=== PATIENT | male | born 1990 | race Caucasian/White ===

== ENCOUNTER 2019-01-24 07:49 | Emergency (ER) | payer OTHER ==
[2019-01-24 07:58] VITALS: BP 129/84; PULSE 80; RESP 18; TEMP 97.7
[2019-01-24] MEDS ORDERED: TOBRAMYCIN 0.3% OPHTH DROPS 5 ML BTL RIGHT EYE STA (08:18)
--- NOTE | 2019-01-24 08:23 | ED ---
Eye Problem HPI - General Chief complaint: Eye Problems Stated complaint: FB in eye-[facility] Time Seen by Provider: 01/24/19 08:08 Source: patient, RN notes reviewed Mode of arrival: ambulatory Limitations: no limitations - History of Present Illness Initial comments: This a 28-year-old male presents emergency Department chief complaint foreign body to the right eye. Patient states that he is going off some parts at work and states a piece of pain 20 to his right eye. Patient states he had severe irritation last night was able to flush out improved symptoms. Patient states that he still feels slight irritation but not as bad as last night. Patient denies any blurred vision, double vision. His tetanus is up-to-date. - Related Data Allergies Allergy/AdvReac Type Severity Reaction Status Date / Time No Known Allergies Allergy Verified 01/24/19 07:58 Review of Systems ROS Statement: Those systems with pertinent positive or pertinent negative responses have been documented in the HPI. ROS Other: All systems not noted in ROS Statement are negative. Past Medical History Past Medical History: No Reported History History of Any Multi-Drug Resistant Organisms: None Reported Additional Past Surgical History / Comment(s): knee surgery, acl replacement Past Psychological History: No Psychological Hx Reported Smoking Status: Never smoker Past Alcohol Use History: Occasional Past Drug Use History: None Reported General Exam Limitations: no limitations General appearance: alert, in no apparent distress Head exam: Present: atraumatic, normocephalic, normal inspection Eye exam: Present: normal appearance, PERRL, EOMI, conjunctival injection (Mild right). Absent: scleral icterus, periorbital swelling Pupils: Present: other (Fluorescein dye and Wood's lamp were used to evaluate the right eye which shows uptake in the sclera) ENT exam: Present: normal exam, mucous membranes moist Neck exam: Present: normal inspection. Absent: tenderness, meningismus, lymphadenopathy Respiratory exam: Present: normal lung sounds bilaterally. Absent: respiratory distress, wheezes, rales, rhonchi, stridor Cardiovascular Exam: Present: regular rate, normal rhythm, normal heart sounds. Absent: systolic murmur, diastolic murmur, rubs, gallop, clicks Course Vital Signs 01/24/19 07:55 Temperature 97.7 F Pulse Rate 80 Respiratory 18 Rate Blood Pressure 129/84 O2 Sat by Pulse 100 Oximetry Medical Decision Making - Medical Decision Making 28-year-old male presented for right eye foreign body. There is no foreign body noted there is a small abrasion to the sclera. Patient we discharged with Tobrex eyedrops. Patient will follow-up for ophthalmology return for any worsening symptoms. Disposition Clinical Impression: Abrasion of sclera of right eye Disposition: HOME SELF-CARE Condition: Stable Instructions (If sedation given, give patient instructions): Eye Foreign Body (ED) Additional Instructions: Please return to the Emergency Department if symptoms worsen or any other concerns. Use Tobrex eyedrops 1 drop to right eye every 4 hours for 7 days. Is patient prescribed a controlled substance at d/c from ED?: No Referrals: None,Stated [Primary Care Provider] - 1-2 days Ck Vega MD [STAFF PHYSICIAN] - 1-2 days Time of Disposition: 08:22
== END 2019-01-24 08:36 | disposition home or self-care (01) ==
LOC: EC 07:49
DX: S05.01XA Injury of conjunctiva and corneal abrasion without foreign body, right eye, initial encounter (principal); Z98.890 Other specified postprocedural states; X58.XXXA Exposure to other specified factors, initial encounter; Y92.69 Other specified industrial and construction area as the place of occurrence of the external cause; Y99.0 Civilian activity done for income or pay
CPT/HCPCS: 99283

== ENCOUNTER 2020-12-25 18:57 | Emergency (ER) | payer OTHER ==
[2020-12-25 19:12] VITALS: RESP 20; TEMP 98
[2020-12-25] MEDS ORDERED: IBUPROFEN 600 MG TAB PO STA (20:19)
[2020-12-25] MEDS ORDERED: HYDROcodone/APAP 5-325MG 1 EACH TAB PO STA (20:19)
--- NOTE | 2020-12-25 20:40 | XR ---
PROCEDURE: XR knee complete RT - 3V DATE AND TIME: 12/25/2020 8:27 PM CLINICAL INDICATION: PHH; pain TECHNIQUE: Department protocol COMPARISON: None FINDINGS: There is no fracture or malalignment. The soft tissues are unremarkable. IMPRESSION: NO ACUTE PROCESS.
[2020-12-25] MEDS ORDERED: ACET/COD 300 MG/30 MG STARTER PACK 6 TAB BTL PO STA (20:51)
--- NOTE | 2020-12-25 20:52 | ED ---
General Adult HPI - General Chief complaint: Extremity Injury, Lower Stated complaint: Knee injury Time Seen by Provider: 12/25/20 19:43 Source: patient, RN notes reviewed Mode of arrival: ambulatory Limitations: no limitations - History of Present Illness Initial comments: 30-year-old male presents to the emergency room for a chief complaint of right k nee pain. Patient was trying to step over a trailer when his left leg slipped and his right leg bent in a strange way on the edge of the trailer. Patient states it is painful to bend. It is painful to walk on. Patient reports he had a surgery on this knee 11 years ago. Denies any other injuries. Did not hit his head.Patient has no other complaints at this time including shortness of breath, chest pain, abdominal pain, nausea or vomiting, headache, or visual changes. - Related Data Allergies Allergy/AdvReac Type Severity Reaction Status Date / Time No Known Allergies Allergy Verified 12/25/20 19:12 Review of Systems ROS Statement: Those systems with pertinent positive or pertinent negative responses have been documented in the HPI. ROS Other: All systems not noted in ROS Statement are negative. Past Medical History Past Medical History: No Reported History History of Any Multi-Drug Resistant Organisms: None Reported Past Surgical History: Orthopedic Surgery Additional Past Surgical History / Comment(s): knee surgery, acl replacement Past Psychological History: No Psychological Hx Reported Smoking Status: Current every day smoker Past Alcohol Use History: Occasional Past Drug Use History: Marijuana General Exam Limitations: no limitations General appearance: alert, in no apparent distress Head exam: Present: atraumatic, normocephalic, normal inspection Eye exam: Present: normal appearance, PERRL, EOMI. Absent: scleral icterus, conjunctival injection, periorbital swelling ENT exam: Present: normal exam Neck exam: Present: normal inspection, full ROM. Absent: tenderness, meningismus, lymphadenopathy Respiratory exam: Present: normal lung sounds bilaterally. Absent: respiratory distress, wheezes, rales, rhonchi, stridor Cardiovascular Exam: Present: regular rate, normal rhythm, normal heart sounds. Absent: systolic murmur, diastolic murmur, rubs, gallop, clicks Extremities exam: Present: normal capillary refill (Capillary refill less than 2 seconds, DP pulse 2+ in the right lower extremity.), other (Sensation is intact right lower extremity.). Absent: full ROM (45 degrees of flexion before limitation secondary to pain, extension to just less than neutral position.), pedal edema, joint swelling (No significant edema or ecchymosis of the right knee.), calf tenderness Course Vital Signs 12/25/20 19:09 Temperature 98 F Pulse Rate 68 Respiratory 20 Rate Blood Pressure 127/66 O2 Sat by Pulse 96 Oximetry Medical Decision Making - Medical Decision Making Vitals are stable. HPI and physical exam as documented. Range of motion limited secondary to pain. No significant edema. X-ray of the right knee shows no acute process. Patient is unable to fully extend knee. Therefore knee immobilizer was not placed. Patient was wrapped with an Aaron wrap. He was given a prescription for crutches. He will need to follow-up with his orthopedic surgeon who is Dr. Carlisle. He will return here for any worsening symptoms in the meantime. Disposition Clinical Impression: Knee pain, right Disposition: HOME SELF-CARE Instructions (If sedation given, give patient instructions): Knee Pain (ED) Additional Instructions: Please take Motrin and Tylenol for pain. If pain is severe take Tylenol [address] operate machinery while taking this. Use Aaron wrap as needed. Use crutches until you see orthopedics. Follow-up with your orthopedic doctor by calling tomorrow for earliest appointment. You will likely need an MRI. If you have any worsening symptoms return to the emergency room. Is patient prescribed a controlled substance at d/c from ED?: No Referrals: Chato Carlisle MD [STAFF PHYSICIAN] - 1-2 days Time of Disposition: 20:46
[2020-12-25 21:59] VITALS: BP 134/78; PULSE 72
== END 2020-12-25 21:59 | disposition home or self-care (01) ==
LOC: EC 18:57
DX: M25.561 Pain in right knee (principal); F17.200 Nicotine dependence, unspecified, uncomplicated; F12.90 Cannabis use, unspecified, uncomplicated
CPT/HCPCS: 99283

== ENCOUNTER 2024-04-12 07:06 | Emergency (ER) | payer BC ==
[2024-04-12 07:16] VITALS: RESP 18
--- NOTE | 2024-04-12 07:39 | ED ---
Upper Extremity HPI - General Chief Complaint: Extremity Injury, Upper Stated Complaint: Right hand injury Time Seen by Provider: 04/12/24 07:17 Source: patient, RN notes reviewed Mode of arrival: ambulatory Limitations: no limitations - History of Present Illness Initial Comments: 33-year-old male presents emergency department complaint of right hand injury. Patient states that on Tuesday states he went to hit something with his right hand states he uses hand as a "hammer". Patient states she has had pain in his palmar aspect ever since. He is right-hand dominant. No paresthesias no other complaints. - Related Data Allergies Allergy/AdvReac Type Severity Reaction Status Date / Time No Known Allergies Allergy Verified 04/12/24 07:15 Review of Systems ROS Statement: Those systems with pertinent positive or pertinent negative responses have been documented in the HPI. ROS Other: All systems not noted in ROS Statement are negative. Past Medical History Past Medical History: No Reported History History of Any Multi-Drug Resistant Organisms: None Reported Past Surgical History: Orthopedic Surgery Additional Past Surgical History / Comment(s): knee surgery, acl replacement Past Psychological History: No Psychological Hx Reported Smoking Status: Current every day smoker Past Alcohol Use History: Occasional Past Drug Use History: Marijuana General Exam Limitations: no limitations General appearance: alert, in no apparent distress Head exam: Present: atraumatic, normocephalic, normal inspection Respiratory exam: Present: normal lung sounds bilaterally. Absent: respiratory distress, wheezes, rales, rhonchi, stridor Cardiovascular Exam: Present: regular rate, normal rhythm, normal heart sounds. Absent: systolic murmur, diastolic murmur, rubs, gallop, clicks Extremities exam: Present: other (Right hand there is mild tenderness in the hyperthenar region, no ecchymosis or significant swelling neurovascular intact) Course Vital Signs 04/12/24 04/12/24 07:13 08:50 Temperature 97.9 F 98 F Pulse Rate 74 76 Respiratory 18 18 Rate Blood Pressure 135/84 130/79 O2 Sat by Pulse 97 99 Oximetry Medical Decision Making - Medical Decision Making Was pt. sent in by a medical professional or institution (, PA, INTEGRATED CIRCUIT IC LAYOUT DESIGNER, urgent care, hospital, or [place] health care facility...) When possible be specific @ -No Did you speak to anyone other than the patient for history (EMS, parent, family, police, friend...)? What history was obtained from this source @ -No Did you review nursing and triage notes (agree or disagree)? Why? @ -I reviewed and agree with nursing and triage notes Were old charts reviewed (outside hosp., previous admission, EMS record, old EKG, old radiological studies, urgent care reports/EKG's, [place] health care facility records)? Report findings @ -No old charts were reviewed Differential Diagnosis (chest pain, altered mental status, abdominal pain women, abdominal pain men, vaginal bleeding, weakness, fever, dyspnea, syncope, headache, dizziness, GI bleed, back pain, seizure, CVA, palpatations, mental health, musculoskeletal)? @ -hand fracture, hand contusion EKG interpreted by me (3pts min.). @ -None X-rays interpreted by me (1pt min.). @ -X-ray right hand shows no acute fracture CT interpreted by me (1pt min.). @ -None done U/S interpreted by me (1pt. min.). @ -None done What testing was considered but not performed or refused? (CT, X-rays, U/S, labs)? Why? @ -None What meds were considered but not given or refused? Why? @ -None Did you discuss the management of the patient with other professionals (kerwin lockwood i.eShey Kapoor, PA, INTEGRATED CIRCUIT IC LAYOUT DESIGNER, lab, RT, psych nurse, hospice social worker, technology training associate, teacher, chief school finance officer, classification case manager)? Give summary @ -No Was smoking cessation discussed for >3mins.? @ -No Was critical care preformed (if so, how long)? @ -No Were there social determinants of health that impacted care today? How? (Homelessness, low income, unemployed, alcoholism, drug addiction, transportation, low edu. Level, literacy, decrease access to med. care, half-way, rehab)? @ -No Was there de-escalation of care discussed even if they declined (Discuss DNR or withdrawal of care, Hospice)? DNR status @ -No What co-morbidities impacted this encounter? (DM, HTN, Smoking, COPD, CAD, Cancer, CVA, ARF, Chemo, Hep., AIDS, mental health diagnosis, sleep apnea, morbid obesity)? @ -None Was patient admitted / discharged? Hospital course, mention meds given and route, prescriptions, significant lab abnormalities, going to OR and other pertinent info. @ -Discharged patient presented for right hand injury there is no acute fracture. Undiagnosed new problem with uncertain prognosis? @ -No Drug Therapy requiring intensive monitoring for toxicity (Heparin, Nitro, Insulin, Cardizem)? @ -No Were any procedures done? @ -No Diagnosis/symptom? @ -Hand contusion Acute, or Chronic, or Acute on Chronic? @ -Acute Uncomplicated (without systemic symptoms) or Complicated (systemic symptoms)? @ -Uncomplicated Side effects of treatment? @ -No Exacerbation, Progression, or Severe Exacerbation? @ -No Poses a threat to life or bodily function? How? (Chest pain, [place], [place], pneumonia, PE, COPD, DKA, ARF, appy, cholecystitis, CVA, Diverticulitis, Homicidal, Suicidal, threat to staff... and all critical care pts) @ -No Disposition Clinical Impression: Contusion of right hand Disposition: HOME SELF-CARE Condition: Stable Instructions (If sedation given, give patient instructions): Contusion in Adults (ED) Additional Instructions: Please return to the Emergency Department if symptoms worsen or any other concerns. Is patient prescribed a controlled substance at d/c from ED?: No Referrals: None,Stated [Primary Care Provider] - 1-2 days Time of Disposition: 08:38
--- NOTE | 2024-04-12 08:15 | XR ---
EXAMINATION TYPE: XR hand complete RT DATE OF EXAM: 04/12/2024 COMPARISON: NONE HISTORY: Pain TECHNIQUE: Three views are submitted. FINDINGS: The osseous structures are intact. The joint spaces are preserved and there is no acute fracture or dislocation. IMPRESSION: 1. No definite acute fracture or dislocation if symptoms persist, follow-up study in 7 to 10 days wo uld be suggested [facility], , 04/12/2024 8:13 AM
[2024-04-12 08:52] VITALS: BP 130/79; PULSE 76; TEMP 98
== END 2024-04-12 08:50 | disposition home or self-care (01) ==
LOC: EC 07:06
CPT/HCPCS: 99283

== ENCOUNTER → 2024-08-08 | Outpatient (CLI) | payer BC ==
--- NOTE | 2024-08-08 12:43 | MR ---
EXAMINATION TYPE: MR lumbar spine wo con DATE OF EXAM: 08/08/2024 11:51 AM COMPARISON: None. CLINICAL INDICATION: Male, 33 years old with history of M54.50 LUMBAR PAIN; PHH, Lower back, bilatera l hip and leg pain TECHNIQUE: Multi planar, multi sequence imaging was performed utilizing: T1-weighted, T2-weighted, a nd turbo inversion recovery imaging of the lumbar spine. IV Contrast: mL (None, if empty) FINDINGS: Alignment: The lumbar vertebral bodies have preserved heights and alignment. Cord: The conus medullaris and the distal spinal cord appear unremarkable with regards to their signa l intensity and morphology. Bones/Discs: Mild degeneration changes throughout the spine with osteophyte formation and facet joint arthropathy. Intervertebral disc signal is maintained. No abnormal inversion recovery signal to sugg est bony edema. T12-L1: No evidence of significant spinal canal stenosis or neural foraminal stenosis. L1-L2: No evidence of significant spinal canal stenosis or neural foraminal stenosis. L2-L3: No evidence of significant spinal canal stenosis. Facet joint arthropathy mild bilateral neura l foraminal stenosis. L3-L4: No evidence of significant spinal canal stenosis. Facet joint arthropathy mild bilateral neura l foraminal stenosis. L4-L5: No evidence of significant spinal canal stenosis. Facet joint arthropathy mild bilateral neura l foraminal stenosis. L5-S1: The disc has a rounded posterior morphology without significant spinal canal stenosis. Facet j oint arthropathy with mild bilateral neural foraminal stenosis. No significant spinal canal or neural foraminal stenosis in the remainder of the visualized levels. Other findings: None. IMPRESSION: 1. No definitive evidence of disc herniation or significant spinal canal stenosis. 2. Mild disc degeneration with associated osteoarthritic changes. No significant neural foraminal st enosis. [facility], , 08/08/2024 12:41 PM
== END | disposition home or self-care (01) ==
LOC: RADMRIMAIN 11:12
PROVIDERS: ATTEND Orthopaedic Surgery
DX: M51.369 Other intervertebral disc degeneration, lumbar region without mention of lumbar back pain or lower extremity pain (principal); M47.897 Other spondylosis, lumbosacral region
CPT/HCPCS: 72148

== ENCOUNTER → 2024-11-01 | Outpatient (CLI) | payer BC ==
[2024-11-01 13:49] VITALS: BP 115/77; PULSE 66; RESP 16; TEMP 98.4
--- NOTE | 2024-11-01 14:41 | P.PAINCN ---
History of Present Illness - History of Present Illness 33-year-old pleasant gentleman who has been having low back pain shooting down to lower extremities for the last 2 years. No history of trauma or accident. Pain is located low back shooting down to lower extremities. Right leg up to the ankle. He describes the low back pain as aching in character and right lower extremity as shooting and sharp in character. Intensity of pain goes 10/10. Sitting position twisting or bending makes the pain worse. Repositioning and elevation of feet makes the pain a little tolerable. Denies any motor weakness. Denies any sensory deficit except occasional numbness of left toes. Denies any bowel bladder dysfunction. Patient had physical therapy, chiropractic therapy without lasting improvement. Past Medical History Past Medical History: No Reported History History of Any Multi-Drug Resistant Organisms: None Reported Past Surgical History: Orthopedic Surgery Additional Past Surgical History / Comment(s): knee surgery, acl replacement Past Psychological History: No Psychological Hx Reported Smoking Status: Current every day smoker Past Alcohol Use History: Occasional Past Drug Use History: Marijuana Medications and Allergies Allergies Allergy/AdvReac Type Severity Reaction Status Date / Time No Known Allergies Allergy Verified 04/12/24 07:15 Physical Exam Vitals: Vital Signs Temp Pulse Resp BP Pulse Ox 11/01/24 13:45 98.4 F 66 16 115/77 98 Intake and Output 10/31/24 11/01/24 11/01/24 22:59 06:59 14:59 Other: Weight 68.039 kg Physical Examinations : -Constitutiona : Cooperative , not in acute distress . -HEENT : nech : supple , no Lymphadenopathy , normal thyroid size . : eyes : no ptosis , no icterus, no photophobia . - neurologic : Cranial nerve II to XII intact , no focal neurological deffecit . -psychatric : alert , oriented X 3 , appropriate affect , intact judgment and insight . -Lymphatic : no Lymphadenopathy . - musculoskeltal : Lumber spine moter stegnth lower extremities ,thigh and legs 5/5 Right side , 5/5 Left side deep tendon reflexes : normal Knee Jerk , normal ankle Jerk lumber facet Loading Test =positive Right , positive Left Range of motion of the lumbar spine decreased for both flexion,extension rotation.. strait leg raising test = questionably positive on right side Fabere test= bilaterally. Gaenslen test= bilaterally. Sacroiliac compression test= negative bilaterally. Results Results: Reviewed lumbar MRI report . Assessment and Plan Assessment: Lumbar radiculopathy. Lumbar foraminal stenosis. Lumbar spine spondylosis. Lumbar facet joint arthropathy. Plan: Schedule for right L4-5 transforaminal epidural steroid injection. Discussed the procedure, alternatives, complications which may include infection, bleeding, nerve damage, paralysis, increased pain all of which could be permanent. Patient understands and all questions were answered. PQRS Measure Charge Sheet Mode of Arrival: Ambulatory - Pain Location Lower Back Non-Pharmacological Interventions: Elevation, Ice, Position/Reposition PQRS Narrative: Smoking Status Never smoker Blood Pressure 115/77 Pain Intensity [Lower Back] 5 Scale Used Numeric (1 - 10) Hx Alcohol Use (MH) No
== END ==
LOC: PNWHC3 13:18
PROVIDERS: ATTEND Anesthesiology
DX: M47.26 Other spondylosis with radiculopathy, lumbar region (principal); M48.061 Spinal stenosis, lumbar region without neurogenic claudication
CPT/HCPCS: 99202

== ENCOUNTER 2024-11-30 08:24 | Day surgery (SDC) | payer BC ==
[2024-11-29 08:41] VITALS: BMI 25.0
[~2024-11-30 08:24] MED LIST: LACTATED RINGERS 1,000 ML IV SCH
[2024-11-30] MEDS: ALPRAZolam 0.5 MG TAB PO STA (08:45)
[2024-11-30 08:54] VITALS: TEMP 97.9
[2024-11-30] MEDS ORDERED: DEXAMETHASONE SOD PHOSPHATE 10 MG/ML 1 ML VIAL ONE (09:50)
[2024-11-30] MEDS ORDERED: IOPAMIDOL M200 10 ML VIAL ONE (09:50)
--- NOTE | 2024-11-30 09:56 | P.PCN ---
Date of Procedure: 11/30/24 Description of Procedure: PROCEDURE: 1) right sided L4-L5 Transforaminal epidural steroid injection under fl uoroscopic guidance, 2) Epidurogram SURGEON: Manjinder Pascual SENIOR INSTRUCTOR: None ANESTHESIA: Local , and IV sedation: None EBL: None. 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 Came here for repeat procedure. PROCEDURE DESCRIPTION: The patient was seen and identified in the preoperative area. Risks, benefits, complications, and alternatives were discussed with the patient. The patient agreed to proceed with the procedure and signed the consent. IV was started, and vital signs were stable. Patient was taken to the OR and time out was completed. The patient was placed in the prone position on procedure table and a pillow was placed under the abdomen to reduce lumbar lordosis. The lumbosacral area was prepped with ChloraPrep 1 and draped in the usual sterile fashion. Critical pause was taken. Vital signs were closely monitored during the procedure. Using 20 degree ipsilateral oblique fluoroscopy, the chin of the Abundio dog of L4 was identified, and the skin and deeper tissues just below was localized with 1% lidocaine. 23-guage 3.5-inch spinal needles were used for the procedure. The needle was guided by fluoroscopy just underneath the chin of the Abundio dog of L4 . Under AP fluoroscopy, the needle was advanced to the 6 o'clock position of the L4 pedicle. After negative aspiration of CSF and blood and with no paresthesias, 1 mL of Isovue-200 contrast dye was injected with good anterior epidural spread and outlining of the L4 nerve root. After negative aspiration 3 mL of block solution injected . Block solution contained 10 mg of dexamethasone, 2 mL of normal saline preservative-free. Needle was removed intact, skin was cleansed, and bandage was applied. COMPLICATIONS: None. DISPOSITION : The patient was placed in a supine position and transferred to the recovery area in a stable condition for observation and was discharged from the recovery room after meeting discharge criteria. Home discharge instructions given to the patient by the staff. The patient was reexamined prior to discharge. The patient will schedule follow-up in the clinic in 4 weeks' duration
[2024-11-30 10:18] VITALS: BP 118/84; PULSE 57; RESP 16
--- NOTE | 2024-11-30 10:50 | FL ---
EXAMINATION TYPE: FL guided pain mgmt statistic DATE OF EXAM: 11/30/2024 10:08 AM COMPARISON: Pre Operative Images if available both CT/MRI or plain film CLINICAL INDICATION: Male, 34 years old with history of Transforaminal Inj; TECHNIQUE: FL guided pain mgmt statistic, multiple fluoroscopic images provided for procedure. DAP: 0.14352 mGym2 Gycm2 uGym2 cGycm2 or equivalent. FINDINGS: Fluoroscopic images during injection for pain management demonstrate multilevel degeneration changes throughout the spine. No evidence for fracture. No acute process identified. IMPRESSION: 1. No evidence for intraoperative complication. 2. Please see the operative/procedural note for further details. [facility], , 11/30/2024 10:47 AM
== END 2024-11-30 10:31 | disposition home or self-care (01) ==
LOC: ORPAIN 08:24
DX: M51.16 Intervertebral disc disorders with radiculopathy, lumbar region (principal)
CPT/HCPCS: 64483; J1100; Q9966

== ENCOUNTER → 2024-12-20 | Outpatient (CLI) | payer BC ==
[2024-12-20 08:59] VITALS: BP 120/86; PULSE 89; RESP 16; TEMP 98
--- NOTE | 2024-12-24 14:22 | P.PAINPG ---
Objective - Vital Signs Vital signs: Intake & Output 12/19/24 12/20/24 12/20/24 18:59 06:59 18:59 Weight 68.039 kg PQRS Measure Charge Sheet Comment: A 34 yr old male with a history of severe and chronic LBP secondary to radiculopathy, spondylosis with facet arthropathy without myelopathy presents today for evaluation s/p L TFESI L4-L5 #1. pt states he experienced 90% pain relief x 2 wks s/p procedure. Pain level is provoked at 7 /10 in intensity, constant, predominantly axial, localized in the lumbar spine, sharp in character without shooting pain. Pain is provoked by bending. Pain is alleviated with physician guided exercises from Dr Fair every other day since Sep 2024, heat, ice, medications, repositioning and rest. Oswestry axial pain score at 24. Interventional pain procedures completed include L TFESI L4-L5 x1 (12/09) Patient is currently on Tyl, Ibu, Cannabis use Patient denies any side effects of the medication(s), denies excessive drowsiness or sleepiness, denies suicidal ideation and reports that the current pain medication is helping to control the pain and improve activities of daily living. Patient denies any motor or sensory deficits. Patient denies any fever or night sweats, denies any change in the bowel movements or urination. Physical Examination: -Constitutional: Cooperative. Not in acute distress . - Neurologic: Cranial nerve II to XII intact. No focal neurological deficits. - Psychatric: Alert & oriented x 3. Matching mood & appropriate affect. Judgment and insight intact. - Musculoskeletal: Cervical spine: Muscle bulk/ tone/ strength in the bilateral upper extremities normal Vertebral body tenderness to palpation over Spurling test positive Distraction test positive Facet loading test positive TTP Thoracic spine Muscle bulk / tone/ strength in the bilateral paraspinal muscles normal Vertebral body tender to palpation over Facet loading test positive TTP Lumbar spine: Motor bulk/ tone/ strength lower extremities , thigh and legs : 5/5 Deep tendon reflexes : Normal Knee Jerk. Normal Ankle Jerk . Vertebral body tenderness to palpation over Thompson Test positive Lumbar Facet Loading Test positive BL L4-L5/ L5-S1 Straight Leg Raise: positive at 30 degrees right side/ left side Gaenslen's Test positive Sacral spine : Severe tenderness over the Sacroiliac joint: right side / left side Range of motion: Flexion of the lumbar spine <60 degrees Range of motion: Extension of the lumbar spine <20 degrees Gaenslen's Test positive right side / left side Melody test: positive right side / left side Thigh Thrust Test positive right side / left side Sacral Thrust Test positive right side / left side Imaging: MRI non contrast lumbar spine from 08/08/24 reviewed Assessment and plan: Chronic LBP secondary to lumbar radiculopathy, spondylosis with facet arthropathy without myelopathy Recommendation of BL MBB L4-L5/ L5-1 #1 and medication management w Flexeril 10mg #30 and Ibu 800mg #90 w RF. Will stop Cannabis use while taking short course [place]. Use, side effects, adverse reactions, safe storage dis cussed. Risks, benefits of procedure discussed and pt verbalized understanding. Admits to anticoagulant use or medical history of diabetes. Protocol for discontinuation/ continuation of medications philippe procedure discussed. Minimal anesthesia provided, if clinically indicated, consisting of Versed and Fentanyl. All questions answered. I have spent less than 30 minutes on patient care today. Dr Perez was available by phone for the evaluation of this patient. The time was used to review the medical records including relevant urine studies and Prescription history (MAPs), review of the available imaging, evaluation and examination of the patient, coordination of care with the medical staff and if applicable referring physicians, as well as creation of the medical record - Pain Location Bilateral Lower Back Non-Pharmacological Interventions: Heat, Ice, Inactivity, Position/Reposition, Relaxation Technique, Stretching Pharmacological Interventions: Epidural, PRN Medication, Topical Medication PQRS Narrative: Smoking Status Never smoker Hx Alcohol Use (MH) No Home Medications: Ambulatory Orders diazePAM [Valium] 10 mg PO DAILY 1 Days #1 tab 11/29/24 Acetaminophen [Tylenol] 325 mg PO Q4H PRN 11/30/24 Cyclobenzaprine [Flexeril] 10 mg PO HS PRN 30 Days #30 tab 12/20/24 HYDROcodone/APAP 7.5-325MG [[place] 7.5-325] 1 tab PO Q4H PRN 3 Days #18 tab 12/20/24 Ibuprofen [Motrin] 800 mg PO Q8H PRN 30 Days #90 tab 12/20/24 Controlled Substance Measures - Controlled Substance Measures Is patient prescribed a controlled substance at discharge?: Yes When asked, does pt state using other controlled substances?: No If prescribed controlled substance>3 days was MAPS reviewed?: Prescribed <3 Days
== END ==
LOC: PNWHC3 08:35
PROVIDERS: ATTEND Specialist
DX: M47.26 Other spondylosis with radiculopathy, lumbar region (principal); F12.90 Cannabis use, unspecified, uncomplicated
CPT/HCPCS: 99211

== ENCOUNTER → 2025-01-14 | Outpatient (CLI) | payer BC ==
[2025-01-14 10:30] VITALS: BP 130/78; PULSE 101; RESP 16
--- NOTE | 2025-01-14 15:51 | P.PAINPG ---
Objective - Vital Signs Vital signs: Vital Signs Temp Pulse 101 H 01/14/25 10:16 Resp 16 01/14/25 10:16 BP 130/78 01/14/25 10:16 Pulse Ox 98 01/14/25 10:16 FiO2 Intake & Output 01/13/25 01/14/25 01/14/25 18:59 06:59 18:59 Weight 68.039 kg PQRS Measure Charge Sheet Mode of Arrival: Ambulatory Comment: A 34 yr old male with a history of severe and chronic LBP secondary to radiculopathy, spondylosis with facet arthropathy without myelopathy presents today for evaluation. Pain level is provoked at 7 /10 in intensity, constant, predominantly axial, localized in the lumbar spine, sharp in character without shooting pain. Pain is provoked by bending. Pain is alleviated with physician guided exercises from Dr Fair every other day since Sep 2024, heat, ice, medications, repositioning and rest. Oswestry axial pain score at 24. Interventional pain procedures completed include L TFESI L4-L5 x1 (12/09) Patient is currently on Tyl, Ibu, Cannabis use Patient denies any side effects of the medication(s), denies excessive drowsiness or sleepiness, denies suicidal ideation and reports that the current pain medication is helping to control the pain and improve activities of daily living. Patient denies any motor or sensory deficits. Patient denies any fever or night sweats, denies any change in the bowel movements or urination. Physical Examination: -Constitutional: Cooperative. Not in acute distress . - Neurologic: Cranial nerve II to XII intact. No focal neurological deficits. - Psychatric: Alert & oriented x 3. Matching mood & appropriate affect. Judgment and insight intact. - Musculoskeletal: Cervical spine: Muscle bulk/ tone/ strength in the bilateral upper extremities normal Vertebral body tenderness to palpation over Spurling test positive Distraction test positive Facet loading test positive TTP Thoracic spine Muscle bulk / tone/ strength in the bilateral paraspinal muscles normal Vertebral body tender to palpation over Facet loading test positive TTP Lumbar spine: Motor bulk/ tone/ strength lower extremities , thigh and legs : 5/5 Deep tendon reflexes : Normal Knee Jerk. Normal Ankle Jerk . Vertebral body tenderness to palpation over Thompson Test positive Lumbar Facet Loading Test positive BL L4-L5/ L5-S1 Straight Leg Raise: positive at 30 degrees right side/ left side Gaenslen's Test positive Sacral spine : Severe tenderness over the Sacroiliac joint: right side / left side Range of motion: Flexion of the lumbar spine <60 degrees Range of motion: Extension of the lumbar spine <20 degrees Gaenslen's Test positive right side / left side Melody test: positive right side / left side Thigh Thrust Test positive right side / left side Sacral Thrust Test positive right side / left side Imaging: MRI non contrast lumbar spine from 08/08/24 reviewed Assessment and plan: Chronic LBP secondary to lumbar radiculopathy, spondylosis with facet arthropathy without myelopathy Recommendation of BL MBB L4-L5/ L5-1 #1 and medication management w Flexeril 10mg #30 and Ibu 800mg #90 w RF. Use, side effects, adverse reactions, safe storage discussed. Risks, benefits of procedure discussed and pt verbalized understanding. Admits to anticoagulant use or medical history of diabetes. Protocol for discontinuation/ continuation of medications philippe procedure discussed. Minimal anesthesia provided, if clinically indicated, consisting of Versed and Fentanyl. All questions answered. I have spent less than 30 minutes on patient care today. Dr Perez was available by phone for the evaluation of this patient. The time was used to review the medical records including relevant urine studies and Prescription history (MAPs), review of the available imaging, evaluation and examination of the patient, coordination of care with the medical staff and if applicable referring physicians, as well as creation of the medical record - Pain Location Lower Back Non-Pharmacological Interventions: Heat, Ice Pharmacological Interventions: Medication PQRS Narrative: Smoking Status Never smoker Blood Pressure 130/78 Pain Intensity [Lower Back] 6 Scale Used Numeric (1 - 10) Hx Alcohol Use (MH) No Home Medications: Ambulatory Orders diazePAM [Valium] 10 mg PO DAILY 1 Days #1 tab 11/29/24 Acetaminophen [Tylenol] 325 mg PO Q4H PRN 11/30/24 Cyclobenzaprine [Flexeril] 10 mg PO HS PRN 30 Days #30 tab 12/20/24 HYDROcodone/APAP 7.5-325MG [[place] 7.5-325] 1 tab PO Q4H PRN 3 Days #18 tab 12/20/24 Ibuprofen [Motrin] 800 mg PO Q8H PRN 30 Days #90 tab 12/20/24 Controlled Substance Measures - Controlled Substance Measures Is patient prescribed a controlled substance at discharge?: No
== END ==
LOC: PNWHC3 10:11
PROVIDERS: ATTEND Specialist
DX: M47.26 Other spondylosis with radiculopathy, lumbar region (principal); F12.90 Cannabis use, unspecified, uncomplicated
CPT/HCPCS: 99212